=== PATIENT | female | born 1980 | race Caucasian/White ===

== ENCOUNTER 2023-03-18 06:33 | Day surgery (SDC) | payer OTHER ==
[2023-03-18 06:55] VITALS: RESP 18
[2023-03-18] MEDS ORDERED: Lactated Ringers 1,000 ML IV ONE (06:57)
[2023-03-18] MEDS ORDERED: Lactated Ringers 1,000 ML IV SCH (07:00)
[2023-03-18] MEDS ORDERED: CEFAZOLIN 2 GM-D5W BAG** 2 GM/50 ML ML IV SCH (07:00)
[2023-03-18 07:04] LABS: HCG URINE TEST NEGATIVE (NEGATIVE)
[2023-03-18] MEDS ORDERED: CEFAZOLIN 2 GM-D5W BAG** 2 GM/50 ML ML IV ONE (07:29)
[2023-03-18] MEDS ORDERED: DIPRIVAN 200 MG/20 ML IV ONE (08:03)
[2023-03-18] MEDS ORDERED: Xylocaine-Mpf 2% 5 Ml Vial ONE (08:03)
[2023-03-18] MEDS ORDERED: SUBLIMAZE 100 MCG/2 ML ONE ×3 (08:03→09:23)
[2023-03-18] MEDS ORDERED: Decadron 4 MG INJ ONE (08:07)
[2023-03-18] MEDS ORDERED: Zofran 4 MG/2 ML VIAL ONE ×2 (08:07→09:12)
[2023-03-18] MEDS ORDERED: Versed 2 MG/2 ML Injection ONE (08:08)
[2023-03-18] MEDS ORDERED: TORAdol 30 mg Injection ONE (08:59)
[2023-03-18 10:17] VITALS: TEMP 98.2; O2SAT 98
[2023-03-18 10:40] VITALS: BP 140/87; PULSE 84
--- NOTE | 2023-03-19 10:36 | OP ---
SURGERY DATE/TIME: 03/18/2023 0838 PREOPERATIVE DIAGNOSIS: Abnormal uterine bleeding. POSTOPERATIVE DIAGNOSIS: Abnormal uterine bleeding. PROCEDURE: Hysteroscopy D&C with ablation via NovaSure. SURGEON: Boyd Benson D.O. FISCAL TECHNICIAN: Kristyn Rolle surgical services tech. ANESTHESIA: General. ESTIMATED BLOOD LOSS: Minimal. COMPLICATIONS: None. INDICATIONS: The risks, benefits, indications and alternatives of the procedure were reviewed with the patient prior to the procedure. The patient understood the risk of infection, bleeding, bowel injury, bladder injury, uterine perforation, pelvic infection and thromboembolic disorder associated with this surgery and desires to have this surgery as a possible means to alleviate her current medical condition. DESCRIPTION OF PROCEDURE AND FINDINGS: At this point the patient is taken to the operating room, given general sedation, placed in dorsal lithotomy position, prepped and draped in the usual sterile fashion. A weighted speculum is then placed into the patient's vagina and the anterior lip of the cervix is grasped with a single tooth tenaculum. Endocervical dilators were advanced through the endocervical canal as a means to dilate the cervix and at this point a 5 mm hysteroscope was then placed in through the endocervical region towards the fundal region where visualization appeared to be within normal limits with no gross abnormalities noted within the endometrial lining. From his point the hysteroscope was removed and the curette was then placed into the fundus of the uterus curettage was performed in all quadrants of the uterus retrieving a mild to moderate amount of tissue. From this point hemostasis was obtained. At this point the NovaSure was then placed through the endocervical region towards the fundal region retracted approximately 1 cm with a length of 6.5 cm and a width of 4.5 cm and at this point the instrument was engaged with an ablative time of 58 seconds. After complete ablation the instrument was disengaged and removed from the uterine cavity. From this point all instruments were then removed from the patient's vaginal region. The patient was then taken out of the dorsal lithotomy position, was taken out of anesthesia and was then taken to the recovery room in stable condition. All instruments and laps were accounted for x2.
== END 2023-03-18 10:40 | disposition home or self-care (01) ==
LOC: SDC 06:33
PROVIDERS: ATTEND Obstetrics & Gynecology
DX: N93.9 Abnormal uterine and vaginal bleeding, unspecified (principal)
CPT/HCPCS: 81025; J0690; J1100; J1885; J2250; J2405; J2704; J3010